=== PATIENT | male | born 1980 | race Caucasian/White ===

== ENCOUNTER 2020-09-25 20:59 | Emergency (ER) | payer OTHER, SELFPAY ==
[2020-09-25 22:46] VITALS: BP 150/91; PULSE 70; RESP 18; TEMP 36.3; O2SAT 97; BMI 34.3
[2020-09-25 23:01] VITALS: PULSE 63; RESP 16; TEMP 37.1; O2SAT 97; BMI 22.9
--- NOTE | 2020-09-25 23:10 | ED.BACK ---
HPI - Back Pain/Injury General Chief Complaint: Back Pain/Injury Stated Complaint: Back pain Time Seen by Provider: 09/25/20 22:49 Source: patient Mode of arrival: ambulatory History of Present Illness HPI Narrative: 40-year-old male with atraumatic lower back pain that started today without radiation into either lower extremity and is not associated with urinary pain/burning/frequency nor with nausea/vomiting/fevers/chills and patient states that he has good control over his urine and bowels. And denies any numbness to the groin area. Related Data Previous Rx's Medication Instructions Recorded ciprofloxacin HCl [Cipro] 500 mg PO Q12H 7 Days #14 tab 09/26/20 Allergies Allergy/AdvReac Type Severity Reaction Status Date / Time No Known Allergies Allergy Verified 09/25/20 23:06 Review of Systems Review of Systems: Pertinent positives and negatives as stated in HPI 10 point review of systems is otherwise negative. PMFSH Past Medical History Source: nursing notes reviewed Medical History Degenerative disk disease Social History Social History Advance Directives: No Advance Directives Information Provided: Yes Physical Exam Vital Signs: Vital Signs: Last Vital Signs Temp 98.7 F 09/25/20 23:01 Pulse 63 09/25/20 23:01 Resp 16 09/25/20 23:01 BP 150/91 H 09/25/20 22:46 Pulse Ox 97 09/25/20 23:01 Body Mass Index 22.9 VITAL SIGNS: Reviewed. GENERAL: Well developed, well nourished, in no acute distress. HEAD: Normocephalic/atraumatic, EYES: PERRLA, EOMI EARS: Ext canals without abnormality NOSE: Nares patent bilateral OROPHARYNX: no oral lesions noted, posterior pharynx clear NECK: Supple, no adenopathy LUNGS: Normal breath sounds. No adventitious sounds or accessory muscle use. SpO2<97> CARDIOVASCULAR: Regular rate and rhythm without noted murmurs, no JVD or lower extremity edema. BACK: Straight leg test negative, palpation over lower back with reported tenderness on palpation at the paraspinal right ABDOMEN: Soft, non-tender, non-distended with bowel sounds. NEUROLOGIC: Alert and oriented x 4. Strength and sensation to light touch were grossly intact x 4. Course Course Course Narrative: This is a 40-year-old male with history and clinical presentation consistent with likely osteoarthritis as patient has degenerative changes in his spine (self-reported), will rule out UTI and treat with combination analgesics as well as a lidocaine patch and muscle relaxant for symptom control. On review of investigations and re-evaluation it is noted the patient has a UTI although patient does report improvement in pain. He was informed of all results and findings and discharged in stable condition with antibiotics after receiving initial dose here in the emergency room. MDM - Back Pain/Injury Lab Data Labs: Lab Results 09/25/20 Range/Units 23:16 Urine Color YELLOW Urine Appearance CLOUDY Urine pH 7.5 (5.0-8.0) Ur Specific [place] 1.020 (1.005-1.025) Urine Protein NEG (NEG-TRACE) MG/DL Urine Glucose (UA) NEG (NEG) MG/DL Urine Ketones NEG (NEG) MG/DL Urine Blood NEG (NEG) Urine Nitrite POS H (NEG) Ur Leukocyte Esterase 1+ H (NEG) Urine RBC 0-2 (0) /HPF Urine WBC 50-75 H (0-4) /HPF Urine WBC Clumps NOTED Ur Squamous Epith Cells 2+ /LPF Urine Bacteria 4+ /LPF Hyaline Casts 0-2 /LPF Discharge Plan Discharge Clinical Impression: Acute UTI Patient Disposition: Home, Self-Care Instructions: Urinary Tract Infection in Men (ED) Additional Instructions: 1. Tylenol 1000 mg, orally, every 6 hours as needed for pain control. Do not exceed 4000 mg within 24 hours. 2. Ibuprofen 400 mg, orally with milk or food, every 6 hours as needed for pain control. 3. Increase fluid hydration especially with water. Please return to the emergency department if you have any acute worsening of your symptoms. Prescriptions: New ciprofloxacin HCl [Cipro] 500 mg tablet 500 mg PO Q12H 7 Days Qty: 14 RF: 0 Referrals: Physician,Unknown [Primary Care Provider] - 2 days
[2020-09-25 23:22] LABS: Glucose Urine UA NEG (NEG); Leukocyte Esterase Urine 1+ (NEG); Nitrite Urine POS (NEG); PH 7.5 (5.0-8.0); Urine Blood NEG (NEG); Urine Ketones NEG (NEG); Urine Protein NEG (NEG-TRACE)
[2020-09-25 23:24] LABS: Appearance Urine CLOUDY; Color Urine YELLOW
[2020-09-25 23:31] LABS: Bacteria Urine 4+ /LPF; Hyaline Casts Urine 0-2 /LPF; RBC Urine 0-2 /HPF (0); Squamous Epithelial Cell Urine 2+ /LPF; WBC Clumps Urine NOTED; WBC Urine 50-75 /HPF (0-4)
[2020-09-25] MEDS: Ketorolac Tromethamine 15 MG/ML VIAL IM (23:41)
[2020-09-25] MEDS: Cyclobenzaprine HCl 5 MG TABLET PO (23:42)
[2020-09-25] MEDS: Lidocaine 4 % Patch ADH..PATCH 1 PATCH TRANSDERMA (23:42)
[2020-09-25] MEDS: Acetaminophen 325 MG TABLET 975 MG PO (23:42)
[2020-09-26] MEDS: levoFLOXacin 500 MG TABLET PO (00:26)
== END 2020-09-26 00:30 | disposition home or self-care (01) ==
PROVIDERS: Emergency Provider Student in an Organized Health Care Education/Training Program
DX: N39.0 Urinary tract infection, site not specified (principal); M54.5 Low back pain; Z79.899 Other long term (current) drug therapy
CPT/HCPCS: 81001; 87086; 87088; 87186; 96372; 99284; J1885

== ENCOUNTER 2023-07-24 22:49 | Emergency (ER) | payer OTHER, SELFPAY ==
--- NOTE | ~2023-07-24 | XR_ITS ---
EXAMINATION: XR WRIST, RIGHT CLINICAL INFORMATION: Pain. COMPARISON: None available. TECHNIQUE: PA, lateral, and oblique views of the right wrist. FINDINGS: The bone mineralization is normal. There appears to be an old injury of the scaphoid with scaphoid fragmentation and widening of the scapholunate joint space. There appears to be necrosis of the inferior portion of the scaphoid. No definitive acute fracture seen. There is soft tissue swelling along the dorsum of the wrist. XR/XR wrist RT min 3V IMPRESSION: There appears to be an old injury to the scaphoid with apparent fragmentation of the scaphoid and probable necrosis of the inferior scaphoid and widening of the scapholunate joint space. No definitive acute fracture seen.
--- NOTE | ~2023-07-24 | XR_ITS ---
EXAMINATION: XR WRIST, LEFT CLINICAL INFORMATION: Pain. COMPARISON: None available. TECHNIQUE: PA, lateral, and oblique views of the left wrist. FINDINGS: The bone mineralization is normal. There is an old scaphoid fracture with corticated margins. There is no acute fracture. The soft tissues are grossly unremarkable. XR/XR wrist LT min 3V IMPRESSION: Old scaphoid fracture. No evidence for acute fracture.
[2023-07-24 23:13] VITALS: BP 112/66; PULSE 61; RESP 16; TEMP 36.7; O2SAT 96; BMI 27.8
--- NOTE | 2023-07-25 | ED.EXTPRO ---
HPI - Extremity Problem General Chief complaint: Extremity Injury, Upper Stated complaint: Bilat hand pain s/p fall 2 weeks ago Time Seen by Provider: 07/24/23 23:45 Source: patient Mode of arrival: ambulatory Limitations: no limitations History of Present Illness HPI Narrative: is a 42-year-old male who presents emergency department for evaluation of bilateral wrist pain. He reports an initial injury approximately 5 years ago, states that he had x-rays obtained and there is something abnormal that he never followed up on. He is not sure what this abnormality was. Two weeks ago he had a mechanical slip and fall where he fell forward landing on to the bilateral outstretched hands. She states that since then he has been experiencing of pain diffusely to the bilateral wrists. It is particularly worse in the evening time, he has intermittent numbness to the hands. He has trialed ibuprofen and Tylenol with only minimal relief. He has decreased range of motion bilaterally, pain with movement. He denies redness, swelling, fevers, chills. Related Data Previous Rx's Medication Instructions Recorded ciprofloxacin HCl 500 mg tablet 500 mg PO Q12H 7 days #14 tabs 09/26/20 (Cipro) Allergies Allergy/AdvReac Type Severity Reaction Status Date / Time No Known Allergies Allergy Verified 09/25/20 23:06 Review of Systems Review of Systems: Yes all other systems are reviewed and are negative PMFSH Past Medical History Attestation statement: The following information was validated with the patient. Source: old records reviewed Medical History Degenerative disk disease Social History Social History Substance Use Type: Marijuana Advance Directives: No Advance Directives Information Provided: Yes Physical Exam Vital Signs: Vital Signs: Last Vital Signs Temp 98.1 F 07/25/23 00:38 Pulse 58 07/25/23 03:09 Resp 17 07/25/23 03:09 BP 117/65 07/25/23 03:09 Pulse Ox 96 07/25/23 03:09 O2 Del Method Room Air 07/25/23 03:09 BMI result Body Mass Index 27.8 Appearance: Alert.?Oriented to person, place and time. No acute distress.?Normal affect. Eyes: Pupils equal, round and reactive to light.? ENT: Pharynx normal.?? Neck: Normal inspection.? Neck supple.?? CVS: Heart sounds normal. Normal heart rate and rhythm.? Pulses normal.?? Respiratory: No respiratory distress.? Lung sounds clear to auscultation bilaterally?? Abdomen: Soft and non-tender. Normoactive bowel sounds. Skin: Skin warm and dry.? Normal skin color.? Extremities: No extremity edema.? Decreased AROM to the bilateral wrists. 2+ radial pulse bilaterally. Positive Tinel sign, positive Phalen's sign Neuro: Moves all extremities spontaneously. Sensation intact bilaterally. Ambulates with normal steady gait. Course Reevaluation(s) Reevaluation #1: XR imaging of the bilateral wrists pending, patient signed out to ED Attending Dr. [place] pending radiologist impression Time: 02:21 Reevaluation #2: Patient was signed out to me to follow-up on x-rays and they are being read as chronic injury to scaphoid and suspicion for possible necrosis and injury, will refer the patient to Orthopedics and at this time he does not wish to wear any splints. Time: 03:27 Medical Decision Making Medical Decision Making MDM Narrative: patient is a 42-year-old male who presents emergency department for evaluation of bilateral wrist strain as per HPI. At the time my examination he is overall well-appearing, nontoxic, afebrile. No erythema or warmth, overt swelling, AROM is near fully intact, not consistent with septic arthritis at this time. Lower suspicion for gouty arthritis. History and physical examination most concerning for carpal tunnel versus sprain. I discussed management symptoms with NSAIDs, in addition to bracing, patient declines to wear braces as he states this typically worsens the pain. less likely fracture, dislocation However given traumatic injury will obtain XR. Differential Diagnosis Differential Diagnoses: The differential diagnosis associated with the presentation includes ( carpal tunnel versus cubital tunnel versus sprain. less likely fracture, dislocation However given traumatic injury obtaining XR) Independent Interpretation I performed an independent interpretation of an: Plain X-Ray ( personally interpreted XR imaging do not see evidence of acute fracture) Independent Historian Clinical information obtained from an independent historian. 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 Prescriptions: No Action ciprofloxacin HCl [Cipro] 500 mg tablet 500 mg PO Q12H 7 Days Qty: 14 0RF Referrals: Daniel Singh MD [Physician] -
[2023-07-25 00:38] VITALS: BP 106/56; PULSE 58; RESP 17; TEMP 36.7; O2SAT 95
[2023-07-25 03:09] VITALS: BP 117/65; PULSE 58; RESP 17; O2SAT 96
--- NOTE | 2023-07-25 03:19 | PC.NURSE ---
pt refusing to wait for xray results stating it is taking too long. attempted to reassure pt; pt stated i'd rather go somewhere else. tried to explain that may require reimaging and pt refusing to wait. pt and family at door wanting to leave without results.
== END 2023-07-25 03:39 | disposition home or self-care (01) ==
PROVIDERS: Emergency Provider Student in an Organized Health Care Education/Training Program
DX: M25.531 Pain in right wrist (principal); M25.532 Pain in left wrist
CPT/HCPCS: 73110; 99283